=== PATIENT | male | born 1960 | race Hispanic/Latino ===

== ENCOUNTER 2016-03-23 15:30 | Emergency (ER) | payer MEDICARE ==
[2016-03-23 16:26] LABS: Urine Drugs of Abuse Note Disclamer
[2016-03-23 16:39] LABS: Bilirubin,Urine NEG (Negative); Blood,Urine NEG (Negative); Ketones,Urine NEG (Negative); Leukocyte Esterase,Urine NEG (Negative); Mucus,Urine FEW /HPF; Nitrite,Urine NEG (Negative); Protein,Urine <15 mg/dL mg/dL (Negative); Urobilinogen,Urine < 2.0 mg/dL (<2.0)
[2016-03-23] MEDS ORDERED: XANAX PO PRN (16:46)
[2016-03-23 16:50] LABS: Basophils % (Auto) 0.5 % (0.0-1.8); Eosinophils % (Auto) 1.5 % (0.0-4.3); Hematocrit 50.3 % (35.5-45.6); Hemoglobin 17.4 gm/dl (11.8-15.2); Mean Corpuscular HGB Conc 35 % (32-34); Mean Corpuscular Hemoglobin 33 pg (28-32); Mean Corpuscular Volume 96 fl (84-94); Platelet Count 198 K/mm3 (140-440); Red Blood Count 5.25 M/mm3 (3.65-5.03); Red Cell Distribution Width 14.4 % (13.2-15.2); White Blood Count 10.6 K/mm3 (4.5-11.0)
[2016-03-23 16:55] LABS: BUN/Creatinine Ratio 8.88; Blood Urea Nitrogen 8 mg/dL (9-20); Carbon Dioxide 25 mmol/L (22-30); Glucose 96 mg/dL (75-100)
[2016-03-23 16:56] LABS: Chloride 103.6 mmol/L (98-107); Potassium 4.3 mmol/L (3.6-5.0); Sodium 140 mmol/L (137-145)
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
[2016-03-23 17:16] LABS: Anion Gap 16 mmol/L
[2016-03-23] MEDS ORDERED: NACL 0.9% 1000 ML 1,000 ML IV ONE (19:03)
[2016-03-23] MEDS ORDERED: KEPPRA 1,000 MG/NS 0.75% 100ML 100 ML IV ONE (20:21)
[2016-03-24 07:41] VITALS: BP 110/68
[2016-03-24] MEDS ORDERED: INVEGA 6 MG PO SCH (10:00)
[2016-03-24] MEDS ORDERED: HCTZ PO SCH (10:00)
[2016-03-24] MEDS ORDERED: KEPPRA PO SCH (10:00)
== END 2016-03-24 08:06 ==
LOC: EEVIPCON 15:30 → ED 15:30
DX: F29 Unspecified psychosis not due to a substance or known physiological condition (principal); F60.0 Paranoid personality disorder; E86.0 Dehydration; I10 Essential (primary) hypertension; F20.9 Schizophrenia, unspecified
CPT/HCPCS: 36415; 80048; 80307; 81001; 85025; 96361; 96365; 99285; G0480; J1953; J7030; 80320